=== PATIENT | female | born 1940 | race Caucasian/White ===

== ENCOUNTER → 2018-08-17 | Outpatient (CLI) | payer MEDICARE, OTHER | END | disposition home or self-care (01) | LOC: CARD 11:41 | PROVIDERS: ATTEND Psychiatry & Neurology Neurology | DX: H47.012 Ischemic optic neuropathy, left eye (principal); H35.3132 Nonexudative age-related macular degeneration, bilateral, intermediate dry stage; H35.53 Other dystrophies primarily involving the sensory retina | CPT/HCPCS: 95930 ==